=== PATIENT | female | born 1960 | race Caucasian/White ===

== ENCOUNTER 2017-08-20 09:36 | Day surgery (SDC) | payer MEDICAID ==
[~2017-08-20] VITALS: Ht 177.8 cm; Wt 61.4 kg
[~2017-08-20 09:36] MED LIST: ASPI81 PO; ATOR10 PO; CARV3.125 PO; CLOP75 PO; D32000CA PO; LISI2.5T3 PO; TAB-TAB PO
[2017-08-20 09:50] VITALS: BP 141/89; PULSE 67; RESP 20; TEMP 99.5; O2SAT 98
[2017-08-20] MEDS ORDERED: SODIUM CHLOR 0.9% 1000 ML IV SCH (10:00)
[2017-08-20] MEDS ORDERED: PERC10TA27 PO (10:07)
[2017-08-20] MEDS ORDERED: FENT25DI T-DERMAL (10:07)
[2017-08-20] MEDS ORDERED: D-20TAB3 PO (10:07)
[2017-08-20] MEDS ORDERED: MULTTAB67 PO (10:07)
[2017-08-20] MEDS ORDERED: LYRI150C PO (10:07)
[2017-08-20] MEDS ORDERED: PLAV75TA29 PO (10:07)
[2017-08-20] MEDS ORDERED: ATOR10TA15 PO (10:07)
[2017-08-20] MEDS ORDERED: ASPI81CH6 CHEW (10:07)
[2017-08-20 11:54] LABS: HEMATOCRIT 27.7 % (35.0-46.0); MEAN CELL VOLUME 106.6 FL (80.0-100.0); MEAN CORPUSCULAR HEMOGLOBIN 35.2 PG (27.0-34.0); MEAN CORPUSCULAR HGB CONC 33.1 % (32.0-36.0); PLATELET COUNT 198 TH/MM3 (150-450); RED CELL DISTRIBUTION WIDTH 19.5 % (11.6-17.2)
[2017-08-20 11:55] LABS: HEMO FLAGS AUTO DIFF
[2017-08-20 12:03] LABS: APTT (PATIENT) 28.8 SEC (24.3-30.1); INTERNATIONAL NORMALIZED RATIO 1.1 RATIO; PROTHROMBIN TIME - PATIENT 10.8 SEC (9.8-11.6)
[2017-08-20 12:37] LABS: BANDS 4 % (0-6); BASOPHILS 1 % (0-2); EOSINOPHILS 4 % (0-4); POLYS (SEG NEUTROPHILS) 15 % (16-70); WBC DIFF SAMPLE 100
[2017-08-20 12:40] LABS: NEUTROPHIL # MANUAL DIFF 0.4 TH/MM3 (1.8-7.7)
[2017-08-20 12:41] LABS: OVALOCYTES 1+ (NORMAL); PLATELET ESTIMATE SMEAR NORMAL (NORMAL); PLATELET MORPHOLOGY NORMAL (NORMAL); SCAN/DIFF FINAL DIFF MANUAL
[2017-08-20] MEDS ORDERED: LIDOCAINE 1%/EPINEPHrine 1:100,000 SOLN 20 ML VIAL ONE (13:44)
[2017-08-20] MEDS ORDERED: MIDAZOLAM HCL 2 MG/2 ML VIAL ONE (14:07)
--- NOTE | 2017-08-20 14:55 | PD.RAD ---
Post CT Procedure Prog Note Pre Procedure Diagnosis: (1) Anemia (2) AML (acute myeloblastic leukemia) Post Procedure Diagnosis: (1) AML (acute myeloblastic leukemia) (2) Anemia Procedure Date: Aug 20, 2017 Supervising Radiologist: Reg Terry Anesthesia: Local, Analgesia, Conscious Sedation Plan of Activity Patient to Unit: ROPU Patient Condition: Good See PACS Report for procedural detail/treatment Biopsy Imaging Guidance: CT Side: Right Biopsy Procedure: Bone Marrow Specimen: Core Biopsy, Fine Needle Aspirate Fluid Description: Reg Jimenez MD Aug 20, 2017 14:55
[2017-08-20 15:10] VITALS: BP 116/77; PULSE 72; RESP 18; TEMP 98.3; O2SAT 95
[2017-08-20 15:25] VITALS: BP 120/77; PULSE 67; RESP 18; O2SAT 96
[2017-08-20 15:55] VITALS: BP 123/86; PULSE 71; RESP 18; O2SAT 96
--- NOTE | 2017-08-20 15:57 | RADRPT ---
EXAM DATE/TIME: 08/20/2017 14:22 [place] COMPARISON: No previous studies available for comparison. INDICATIONS : Myelodysplastic syndrome, acute myeloid leukemia, neutropenia. SEDATION TIME: 40 minutes BIOPSY SITE: Right ilium. MEDICATION(S): 1.) 3 mg midazolam (Versed) IV 2.) 150 mcg fentanyl (Sublimaze) IV DEVICE(S): 1.) 11 gauge Bone marrow biopsy needle MEDICAL HISTORY : Chronic obstructive pulmonary disease. Renal calculi. Stroke Myelodysplastic syndrome. SURGICAL HISTORY : Hysterectomy. ENCOUNTER: Initial ACUITY: 1 day PAIN SCORE: 0/10 LOCATION: Right pelvis A total of one core specimen(s) were obtained and sent to the laboratory for pathologic evaluation. PROCEDURE: 1. CT guided bone marrow biopsy. Prior to the procedure informed consent was obtained. Any appropriate prior imaging studies were rev iewed. Using automated exposure control and adjustment of the mA and/or kV according to patient size , radiation dose was kept as low as reasonably achievable to obtain optimal diagnostic quality images . DICOM format image data is available electronically for review and comparison. The site was prepped in a sterile fashion. Full sterile technique was used, including cap, mask, atif rile gloves and gown and a large sterile sheet. Hand hygiene and 2% chlorhexidine and/or betadine/al cohol prep was utilized per protocol for cutaneous antisepsis. The skin and subcutaneous tissues wer e infiltrated with local anesthetic solution. With CT guidance the previously identified target was localized. Biopsy was performed using the presc ribed needle as above. Following biopsy marrow aspiration was performed with repeat puncture. Adequa te hemostasis was obtained with compression at the puncture site. Follow-up CT scan reveals no hemorrhage. Conscious sedation was performed with the prescribed dosages and duration as above in the presence of an independent trained radiology nurse to assist in the monitoring of the patient. EKG and oximetry remained stable throughout the procedure. The patient tolerated the procedure well and there were no complications. The patient was sent to Radiology Outpatient Unit in stable condition. CONCLUSION: 1. Uncomplicated CT guided bone marrow aspirate. 2. Uncomplicated CT guided bone marrow biopsy. Reg Terry MD on August 20, 2017 at 15:55 Board Certified Radiologist. This report was verified electronically.
[2017-08-20 16:13] LABS: BONE MARROW PROCESSING COMPLETE
[2017-08-20 16:14] LABS: IRON STAIN DONE; JENNER GIEMSA STAIN DONE
[2017-08-20] MEDS ORDERED: oxyCODONE/ACETAMINOPHEN 10 MG/325 MG TAB PO ONE (16:15)
[2017-08-20 16:25] VITALS: BP 130/88; PULSE 68; RESP 20; O2SAT 97
[2017-08-20 16:55] VITALS: BP 135/80; PULSE 70; RESP 20; O2SAT 97
== END 2017-08-20 17:26 | disposition home or self-care (01) ==
LOC: HRAD 09:36 → HRIP 09:37 → HRAD 17:26
PROVIDERS: ATTEND Internal Medicine
DX: C92.00 Acute myeloblastic leukemia, not having achieved remission (principal); D53.9 Nutritional anemia, unspecified; D70.9 Neutropenia, unspecified; J44.9 Chronic obstructive pulmonary disease, unspecified
CPT/HCPCS: 38221; 77012; 85007; 85027; 85097; 85610; 85730; 88305; 88311; 88313; 99152; 99153; C1830; G0364; J2250; J3010; J7030

== ENCOUNTER 2017-12-25 15:00 | Observation (INO) | payer MEDICAID ==
[~2017-12-25] VITALS: Ht 177.8 cm; Wt 62.5 kg
[~2017-12-25 15:00] MED LIST changes: -ASPI81 PO; +ASPI81CH6 CHEW; -ATOR10 PO; +ATOR10TA15 PO; -CARV3.125 PO; -CLOP75 PO; +D-20TAB3 PO; -D32000CA PO; +FENT25DI T-DERMAL; -LISI2.5T3 PO; +LYRI150C PO; +MULTTAB67 PO; +PERC10TA27 PO; +PLAV75TA29 PO; -TAB-TAB PO
[2017-12-25 15:04] VITALS: BP 109/60; PULSE 84; RESP 16; TEMP 99.5; O2SAT 97
[2017-12-25] MEDS ORDERED: SODIUM CHLORID 0.9% 500 ML INJ 500 ML IV ONE (15:30)
[2017-12-25] MEDS ORDERED: SODIUM CHLORIDE 0.9% FLUSH 10 ML FLUSH IVF PRN (15:30)
--- NOTE | 2017-12-25 15:44 | PD ---
HPI Chief Complaint: Abnormal Results Time Seen by Provider: 15:13 Travel History International Travel<30 days: No Contact w/Intl Traveler<30days: No Traveled to known affect area: No History of Present Illness HPI Patient is a 57 year old female with history of mild dysplastic syndrome with profound neutropenia, presents the emergency room with complaints of anemia. Patient reports that she does follow-up with Dr. Cristiano Sher with hematology. Patient reports that she had her blood drawn last week and her hemoglobin was low, she subsequently had a blood transfusion on Friday. Patient had her blood work redrawn yesterday, her hemoglobin resulted as 5.7. Patient was told by rehab aid to go directly to the emergency room for a blood transfusion. Patient reports that she does feel a little weaker than normal, denies any fevers or chills, denies any chest pain or shortness of breath. Patient with no other complaints at this time. PFSH Past Medical History Hx Anticoagulant Therapy: Yes (plavix and asa 81mg) Anemia: Yes Arthritis: Yes Asthma: No Anxiety: No Depression: No Cancer: Yes (LEUKEMIA/LYMPHOMA) Cardiovascular Problems: Yes ([place] x 1 with one stent, hx of htn not on meds) High Cholesterol: No Chemotherapy: Yes (last march 2014) Chest Pain: No Congestive Heart Failure: No COPD: No Diabetes: No Diminished Hearing: No Gastrointestinal Disorders: Yes (PUD) Glaucoma: No Genitourinary: No Headaches: Yes (MIGRAINES) Hepatitis: No Hiatal Hernia: No Hypertension: Yes (WITH HEADACHES) Immune Disorder: No Musculoskeletal: Yes (CHRONIC BACK PAIN) Neurologic: Yes (migraines , cva) Psychiatric: No Reproductive: No Respiratory: No Immunizations Current: No Migraines: Yes Sleep Apnea: No Thyroid Disease: No ?: Not Menopausal: Yes : 3 Para: 3 Ovarian Cysts: Yes Past Surgical History AICD: No Gynecologic Surgery: Yes (LAPAROSCOPY, OVARIAN CYSTECTOMY) Hysterectomy: Yes Joint Replacement: No Pacemaker: No Other Surgery: Yes (SINUS SURGERY 1985) Social History Alcohol Use: No Tobacco Use: Yes (OCCASIONAL) Substance Use: No Allergies-Medications (Allergen,Severity, Reaction): Coded Allergies: aspirin (Unverified Allergy, Severe, N/V, BEHAIVIOR CHANGES, 12/25/17) pt states does not have a allergy to this med Tash Correa 12/25/17 butalbital (Unverified Allergy, Severe, N/V, BEHAIVIOR CHANGES, 12/25/17) butorphanol (Unverified Allergy, Severe, IRRITABLE, 12/25/17) caffeine (Unverified Allergy, Severe, N/V, BEHAIVIOR CHANGES, 12/25/17) acetaminophen (Unverified Allergy, Unknown, 12/25/17) codeine (Unverified Allergy, Unknown, 12/25/17) Reported Meds & Prescriptions Reported Meds & Active Scripts Active Reported Flonase Nasal [place] (Fluticasone Nasal [place]) 50 Mcg/Act [place] 50 Mcg EACH NARE BID Percocet (Oxycodone-Acetaminophen) 10-325 mg Tab 1 Tab PO TID PRN Fentanyl Patch 72 HR (Fentanyl) 25 Mcg/Hr Patch 25 Mcg T-DERMAL Q72H Lyrica (Pregabalin) 150 Mg Cap 150 Mg PO TID Multiple Vitamin 1 Tab 1 Tab PO DAILY Plavix (Clopidogrel Bisulfate) 75 Mg Tab 75 Mg PO DAILY D-2000 Maximum Strength (Cholecalciferol) 2,000 Unit Tab 2,000 Units PO DAILY Atorvastatin (Atorvastatin Calcium) 10 Mg Tab 10 Mg PO HS Aspirin Low Dose (Aspirin) 81 Mg Chew 81 Mg CHEW DAILY Review of Systems General / Constitutional: No: Fever Eyes: No: Visual changes HENT: No: Headaches Cardiovascular: No: Chest Pain or Discomfort Respiratory: No: Shortness of Breath Gastrointestinal: No: Abdominal Pain Genitourinary: No: Dysuria Musculoskeletal: No: Pain Skin: No Rash Neurologic: Positive: Weakness Psychiatric: No: Depression Endocrine: No: Polydipsia Hematologic/Lymphatic: No: Easy Bruising Physical Exam Narrative GENERAL: Mild distress SKIN: Focused skin assessment warm/dry/pale HEAD: Atraumatic. Normocephalic. EYES: Pupils equal and round. No scleral icterus. No injection or drainage. ENT: No nasal bleeding or discharge. Mucous membranes pink and moist. NECK: Trachea midline. No JVD. CARDIOVASCULAR: Regular rate and rhythm. No murmur appreciated. RESPIRATORY: No accessory muscle use. Clear to auscultation. Breath sounds equal bilaterally. GASTROINTESTINAL: Abdomen soft, non-tender, nondistended. Hepatic and splenic margins not palpable. MUSCULOSKELETAL: No obvious deformities. No clubbing. No cyanosis. No edema. NEUROLOGICAL: Awake and alert. No obvious cranial nerve deficits. Motor grossly within normal limits. Normal speech. PSYCHIATRIC: Appropriate mood and affect; insight and judgment normal. Data Data Last Documented VS Vital Signs Date Time Temp Pulse Resp B/P (MAP) Pulse Ox O2 Delivery O2 Flow Rate FiO2 12/25/17 15:57 74 18 91/66 (74) 93 Room Air 12/25/17 15:04 99.5 Orders Orders Type And Screen (12/25/17 15:21) Basic Metabolic Panel (Bmp) (12/25/17 15:21) Complete Blood Count With Diff (12/25/17 15:21) Prothrombin Time / Inr (Pt) (12/25/17 15:21) Act Partial Throm Time (Ptt) (12/25/17 15:21) Ecg Monitoring (12/25/17 15:21) Iv Access Insert/Monitor (12/25/17 15:21) Oximetry (12/25/17 15:21) Sodium Chloride 0.9% Flush (Ns Flush) (12/25/17 15:30) Sodium Chlorid 0.9% 500 Ml Inj (Ns 500 M (12/25/17 15:30) Red Blood Cells Irradiated (12/25/17 16:12) Blood Product Administration (12/25/17 16:12) Sodium Chlor 0.9% 250 Ml Inj (Ns 250 Ml (12/25/17 16:15) Place In Observation (12/25/17 ) Vital Signs (Adult) ORALIA.Q4H (12/25/17 16:23) Activity Oob With Assistance (12/25/17 16:23) Diet Regular Basic (12/25/17 Dinner) Labs Laboratory Tests Test 12/25/17 15:30 White Blood Count 1.8 TH/MM3 Red Blood Count 1.48 MIL/MM3 Hemoglobin 5.3 GM/DL Hematocrit 15.8 % Mean Corpuscular Volume 106.3 FL Mean Corpuscular Hemoglobin 36.0 PG Mean Corpuscular Hemoglobin Concent 33.8 % Red Cell Distribution Width 30.9 % Platelet Count 132 TH/MM3 Mean Platelet Volume 8.4 FL CBC Comment AUTO DIFF Prothrombin Time 12.1 SEC Prothromb Time International Ratio 1.2 RATIO Activated Partial Thromboplast Time 32.2 SEC Blood Urea Nitrogen 15 MG/DL Creatinine 0.77 MG/DL Random Glucose 87 MG/DL Calcium Level 8.2 MG/DL Sodium Level 140 MEQ/L Potassium Level 3.9 MEQ/L Chloride Level 111 MEQ/L Carbon Dioxide Level 22.3 MEQ/L Anion Gap 7 MEQ/L Estimat Glomerular Filtration Rate 77 ML/MIN MDM Medical Decision Making Medical Screen Exam Complete: Yes Emergency Medical Condition: Yes Medical Record Reviewed: Yes Interpretation(s) Vital Signs Date Time Temp Pulse Resp B/P (MAP) Pulse Ox O2 Delivery O2 Flow Rate FiO2 12/25/17 15:04 99.5 84 16 109/60 (76) 97 Differential Diagnosis anemia, MDS Narrative Course 57-year-old female with history of MDS and neutropenia who presents the emergency room for evaluation of anemia; yesterday's HGB resulted at 5.7 - patient here for blood transfusion During the course of the patients emergency department visit, the patients history, examination, and differential diagnosis were reviewed with the patient. The patient was placed on a groundwater monitoring technician with oximetry and frequent blood pressure monitoring. The patient had an IV access obtained and blood work sent for analysis. The patient was initially provided IVF The patients laboratory studies were reviewed and remarkable for CBC & BMP Diagram 12/25/17 15:30 Calcium Level 8.2 L . Patient's hemoglobin is 5.3, 2 units of blood was ordered. Case reviewed with Dr. Begum who accepted patient to service. Diagnosis Primary Impression: Symptomatic anemia Additional Impression: Neutropenia Admitting Information Admitting Physician Requests: Admit Tyra Zamorano DO Dec 25, 2017 15:44
[2017-12-25 15:57] VITALS: BP 91/66; PULSE 74; RESP 18; O2SAT 93
[2017-12-25 15:58] LABS: BICARBONATE 22.3 MEQ/L (21.0-32.0); CALCIUM 8.2 MG/DL (8.5-10.1)
[2017-12-25 15:59] LABS: MEAN CELL VOLUME 106.3 FL (80.0-100.0); MEAN CORPUSCULAR HGB CONC 33.8 % (32.0-36.0); MEAN PLATELET VOLUME 8.4 FL (7.0-11.0); PLATELET COUNT 132 TH/MM3 (150-450); RED BLOOD COUNT 1.48 MIL/MM3 (4.00-5.30); RED CELL DISTRIBUTION WIDTH 30.9 % (11.6-17.2); WHITE BLOOD COUNT 1.8 TH/MM3 (4.0-11.0)
[2017-12-25 16:01] LABS: INTERNATIONAL NORMALIZED RATIO 1.2 RATIO; PROTHROMBIN TIME - PATIENT 12.1 SEC (9.8-11.6)
[2017-12-25 16:02] LABS: CREATININE 0.77 MG/DL (0.50-1.00); HEMATOCRIT 15.8 % (35.0-46.0); HEMOGLOBIN 5.3 GM/DL (11.6-15.3)
[2017-12-25] MEDS ORDERED: FLUT1SPR5 EACH NARE (16:08)
[2017-12-25] MEDS ORDERED: SODIUM CHLOR 0.9% 250 ML INJ 250 ML IV ONE (16:15)
[2017-12-25 16:25] LABS: LYMPHOCYTES 78 % (9-44); MONOCYTES 9 % (0-8); POLYS (SEG NEUTROPHILS) 13 % (16-70)
[2017-12-25 16:26] LABS: TARGET CELLS 1+ (NORMAL)
[2017-12-25 16:29] LABS: NEUTROPHIL # MANUAL DIFF 0.2 TH/MM3 (1.8-7.7)
--- NOTE | 2017-12-25 16:53 | HHI.HP ---
HPI Service [facility] Primary Care Physician Sony Dumont MD Admission Diagnosis Symptomatic anemia Diagnoses: (1) Anemia Chief Complaint: Told to come here by oncology Travel History International Travel<30 Days: No Contact w/Intl Traveler <30 Da: No Traveled to Known Affected Are: No History of Present Illness 57-year-old rather unfortunate female with myelodysplasia, antiphospholipid syndrome, COPD, anxiety, history of CVA, peripheral neuropathy, history of myocardial infarction who presented to hospital at the request of her oncologist for transfusion. Patient does have mild spastic syndrome and undergoes transfusions on a regular basis. She states that has been getting worse since July with pancytopenia has been requiring Neupogen, frequent transfusions. Her last transfusion was Friday where she got transfused 1 unit of packed red blood cells. She had follow-up blood work done and was called by the oncologist office who told her to go to the ER to get a transfusion. Patient had blood work done today which did indicate a hemoglobin of 5.3. Patient is also neutropenic. Patient indicates that she has had short of breath and increased fatigue. She was seen by emergency room physician and requested observation for blood transfusion as requested by the oncologist. Review of Systems Constitutional: COMPLAINS OF: Fatigue Ears, nose, mouth, throat: COMPLAINS OF: Throat pain, Sinus Pain Respiratory: COMPLAINS OF: Shortness of breath Except as stated in HPI: all other systems reviewed are Neg Past Family Social History Past Medical History Myelodysplastic syndrome History of myocardial infarction History CVA Peripheral neuropathy Continue tobacco use Chronic back pain History of acute myelogenous leukemia Anxiety Chronic infarct pulmonary disease Past Surgical History Bone marrow biopsy Right knee surgery Ovarian cystotomy Sinus surgery Hysterectomy Reported Medications Reported Meds & Active Scripts Active Reported Flonase Nasal [place] (Fluticasone Nasal [place]) 50 Mcg/Act [place] 50 Mcg EACH NARE BID Percocet (Oxycodone-Acetaminophen) 10-325 mg Tab 1 Tab PO TID PRN Fentanyl Patch 72 HR (Fentanyl) 25 Mcg/Hr Patch 25 Mcg T-DERMAL Q72H Lyrica (Pregabalin) 150 Mg Cap 150 Mg PO TID Multiple Vitamin 1 Tab 1 Tab PO DAILY Plavix (Clopidogrel Bisulfate) 75 Mg Tab 75 Mg PO DAILY D-2000 Maximum Strength (Cholecalciferol) 2,000 Unit Tab 2,000 Units PO DAILY Atorvastatin (Atorvastatin Calcium) 10 Mg Tab 10 Mg PO HS Aspirin Low Dose (Aspirin) 81 Mg Chew 81 Mg CHEW DAILY Allergies: Coded Allergies: aspirin (Unverified Allergy, Severe, N/V, BEHAIVIOR CHANGES, 12/25/17) pt states does not have a allergy to this med Tash Correa 12/25/17 butalbital (Unverified Allergy, Severe, N/V, BEHAIVIOR CHANGES, 12/25/17) butorphanol (Unverified Allergy, Severe, IRRITABLE, 12/25/17) caffeine (Unverified Allergy, Severe, N/V, BEHAIVIOR CHANGES, 12/25/17) acetaminophen (Unverified Allergy, Unknown, 12/25/17) codeine (Unverified Allergy, Unknown, 12/25/17) Family History Reviewed and significant for father in his 60s from heart disease, mother at age 72 from pancreatic cancer, mother at age 57 from lung cancer Social History Patient continues to smoke at least one cigarette weekly. She was smoking half pack of cigarettes a day since she was 14 years old. Patient denies any alcohol or illicit drug Physical Exam Vital Signs Vital Signs Date Time Temp Pulse Resp B/P (MAP) Pulse Ox O2 Delivery O2 Flow Rate FiO2 12/25/17 15:57 74 18 91/66 (74) 93 Room Air 12/25/17 15:57 18 93 Room Air 12/25/17 15:04 99.5 84 16 109/60 (76) 97 Physical Exam GENERAL: Well-developed, cachectic, in no acute distress. alert and orientated HEENT: Head is normocephalic without any lesions or masses noted. Facial features are symmetric. Eyes: Pupils equal round reactive to light. Extraocular muscles are intact. Conjunctivae were clear. Did not examine oropharyngeal patient is wearing mass due to neutropenia NECK: Supple without any masses. Trachea midline no deviation. No JVD, no bruits are appreciated CARDIAC: Regular rhythm, regular rate. S1/S2 are heard. No murmurs gallops or rubs. LUNGS: Clear to auscultation bilaterally. No wheeze, rhonchi or rales. No use of accessory muscles on inspiration or expiration. ABDOMEN: Soft, nontender. Nondistended. Bowel sounds heard in all 4 quadrants. No organomegaly or masses. Negative rebound, negative guarding EXTREMITIES: No edema, pulses are equal bilaterally. No cyanosis or clubbing NEUROLOGY: Mood and affect appear appropriate. Cranial nerves II through XII grossly intact. Patient has obvious muscle wasting of the right hand Laboratory Laboratory Tests Test 12/25/17 15:30 White Blood Count 1.8 Red Blood Count 1.48 Hemoglobin 5.3 Hematocrit 15.8 Mean Corpuscular Volume 106.3 Mean Corpuscular Hemoglobin 36.0 Mean Corpuscular Hemoglobin Concent 33.8 Red Cell Distribution Width 30.9 Platelet Count 132 Mean Platelet Volume 8.4 CBC Comment AUTO DIFF Differential Total Cells Counted 100 Neutrophils % (Manual) 13 Lymphocytes % 78 Monocytes % 9 Neutrophils # (Manual) 0.2 Differential Comment FINAL DIFF MANUAL Platelet Estimate LOW Platelet Morphology Comment NORMAL Target Cells 1+ Prothrombin Time 12.1 Prothromb Time International Ratio 1.2 Activated Partial Thromboplast Time 32.2 Blood Urea Nitrogen 15 Creatinine 0.77 Random Glucose 87 Calcium Level 8.2 Sodium Level 140 Potassium Level 3.9 Chloride Level 111 Carbon Dioxide Level 22.3 Anion Gap 7 Estimat Glomerular Filtration Rate 77 Result Diagram: 12/25/17 1530 12/25/17 1530 Caprini VTE Risk Assessment Caprini VTE Risk Assessment: Mod/High Risk (score >= 2) Caprini Risk Assessment Model Point Value = 1 Point Value = 2 Point Value = 3 Point Value = 5 Age 41-60 Minor surgery BMI > 25 kg/m2 Swollen legs Varicose veins or History of unexplained or recurrent spontaneous Oral contraceptives or hormone replacement Sepsis (< 1 month) Serious lung disease, including pneumonia (< 1 month) Abnormal pulmonary function Acute myocardial infarction Congestive heart failure (< 1 month) History of inflammatory bowel disease Medical patient at bed rest Age 61-74 Arthroscopic surgery Major open surgery (> 45 min) Laparoscopic surgery (> 45 min) Malignancy Confined to bed (> 72 hours) Immobilizing plaster cast Central venous access Age >= 75 History of VTE Family history of VTE Factor V Leiden Prothrombin [id number] Lupus anticoagulant Anticardiolipin antibodies Elevated serum homocysteine Heparin-induced thrombocytopenia Other congenital or acquired thrombophilia Stroke (< 1 month) Elective arthroplasty Hip, pelvis, or leg fracture Acute spinal cord injury (< 1 month) Prophylaxis Regimen Total Risk Factor Score Risk Level Prophylaxis Regimen 0-1 Low Early ambulation 2 Moderate Order ONE of the following: *Sequential Compression Device (SCD) *Heparin 5000 units SQ BID 3-4 Higher Order ONE of the following medications: *Heparin 5000 units SQ TID *Enoxaparin/Lovenox 40 mg SQ daily (WT < 150 kg, CrCl > 30 mL/min) *Enoxaparin/Lovenox 30 mg SQ daily (WT < 150 kg, CrCl > 10-29 mL/min) *Enoxaparin/Lovenox 30 mg SQ BID (WT < 150 kg, CrCl > 30 mL/min) AND/OR *Sequential Compression Device (SCD) 5 or more Highest Order ONE of the following medications: *Heparin 5000 units SQ TID (Preferred with Epidurals) *Enoxaparin/Lovenox 40 mg SQ daily (WT < 150 kg, CrCl > 30 mL/min) *Enoxaparin/Lovenox 30 mg SQ daily (WT < 150 kg, CrCl > 10-29 mL/min) *Enoxaparin/Lovenox 30 mg SQ BID (WT < 150 kg, CrCl > 30 mL/min) AND *Sequential Compression Device (SCD) Assessment and Plan Assessment and Plan Anemia secondary to myelodysplastic syndrome requiring transfusion ER physician transfusing 2 units of packed red blood cells Follow-up hemoglobin/hematocrit, try to keep hemoglobin above 8.0 Neutropenia secondary to myelodysplastic syndrome Neutropenic precautions History of CVA, history of myocardial infarction, Continue home medications Chronic pain with peripheral neuropathy Continue home medications DVT prevention Sequential compression devices Problem Qualifiers (1) Anemia: Qualified Codes: D64.89 - Other specified anemias Raad Paz Dec 25, 2017 16:53
[2017-12-25] MEDS ORDERED: MAGNESIUM HYDROXIDE SUSP 30 ML CUP PO PRN (17:00)
[2017-12-25] MEDS ORDERED: NALOXONE HCL 0.4 MG/ML AMP IV PUSH PRN (17:00)
[2017-12-25] MEDS ORDERED: SODIUM CHLORIDE 0.9% FLUSH 10 ML FLUSH IV FLUSH PRN (17:00)
[2017-12-25] MEDS ORDERED: BISACODYL 10 MG SUPP RECTAL PRN (17:00)
[2017-12-25] MEDS ORDERED: oxyCODONE/ACETAMINOPHEN 10 MG/325 MG TAB PO PRN (17:00)
[2017-12-25] MEDS ORDERED: SENNOSIDES 8.6 MG TAB PO PRN (17:00)
[2017-12-25] MEDS ORDERED: ONDANSETRON HCL 4 MG/2 ML VIAL IVP PRN (17:00)
[2017-12-25] MEDS ORDERED: LACTULOSE SYRUP 20 GM/30 ML CUP PO PRN (17:00)
[2017-12-25] MEDS: PREGABALIN 75 MG CAP PO SCH (17:44)
[2017-12-25 17:47] VITALS: BP 89/59; PULSE 72; RESP 16; O2SAT 93
[2017-12-25] MEDS: SODIUM CHLORIDE 0.9% FLUSH 10 ML FLUSH IV FLUSH SCH (21:00)
[2017-12-25] MEDS ORDERED: FLUTICASONE PROPIONATE 50 MCG/ACT 16 GM NASAL SPRAY EACH NARE SCH (21:00)
[2017-12-25] MEDS ORDERED: ATORVASTATIN 10 MG TAB PO SCH (21:00)
[2017-12-25] MEDS: DOCUSATE SODIUM 50 MG/SENNA 8.6 MG TAB PO SCH (21:43)
[2017-12-25] MEDS ORDERED: oxyCODONE/ACETAMINOPHEN 10 MG/325 MG TAB PO ONE (22:00)
[2017-12-25 22:34] VITALS: BP 97/71; PULSE 77; RESP 12; TEMP 98.9; O2SAT 96
[2017-12-25 22:36] VITALS: BP 97/51
[2017-12-25 23:00] VITALS: BP 97/78; PULSE 77; RESP 12; TEMP 98.8; O2SAT 97
[2017-12-26] VITALS (7 sets, daily range): BP systolic 92–141; BP diastolic 68–93; PULSE 65–78; RESP 12–20; TEMP 98.9–99.8; O2SAT 95–99
[2017-12-26 06:40] LABS: BASOPHIL % 0.7 % (0.0-2.0); EOSINOPHIL # 0.1 TH/MM3 (0-0.4); EOSINOPHIL % 9.2 % (0.0-4.0); HEMATOCRIT 22.7 % (35.0-46.0); HEMOGLOBIN 7.6 GM/DL (11.6-15.3); LYMPH % 61.9 % (9.0-44.0); LYMPHOCYTE # 1.1 TH/MM3 (1.0-4.8); MEAN CELL VOLUME 95.1 FL (80.0-100.0); MEAN CORPUSCULAR HEMOGLOBIN 31.8 PG (27.0-34.0); MEAN CORPUSCULAR HGB CONC 33.5 % (32.0-36.0); MONO % 13.2 % (0.0-8.0); MONOCYTE # 0.2 TH/MM3 (0-0.9); PLATELET COUNT 121 TH/MM3 (150-450); RED BLOOD COUNT 2.38 MIL/MM3 (4.00-5.30); RED CELL DISTRIBUTION WIDTH 28.5 % (11.6-17.2); WHITE BLOOD COUNT 1.6 TH/MM3 (4.0-11.0)
[2017-12-26 06:59] LABS: AUTOMATED NEUTROPHIL # 0.2 TH/MM3 (1.8-7.7)
[2017-12-26 07:38] LABS: LYMPHOCYTES 66 % (9-44); MONOCYTES 9 % (0-8); NEUTROPHIL # MANUAL DIFF 0.3 TH/MM3 (1.8-7.7); POLYS (SEG NEUTROPHILS) 18 % (16-70)
[2017-12-26 07:39] LABS: TARGET CELLS 1+ (NORMAL)
[2017-12-26] MEDS: SODIUM CHLORIDE 0.9% FLUSH 10 ML FLUSH IV FLUSH SCH (08:06)
[2017-12-26] MEDS: PREGABALIN 75 MG CAP PO SCH (08:06)
[2017-12-26] MEDS: DOCUSATE SODIUM 50 MG/SENNA 8.6 MG TAB PO SCH (08:06)
--- NOTE | 2017-12-26 08:29 | HHI.PR ---
Subjective Remarks Patient seen and examined today for follow-up on anemia secondary to myelodysplasia. Patient laying in bed comfortable, denies any new complaints. Patient eager to go home. Vital signs are stable, patient remains afebrile Objective Vitals Vital Signs Date Time Temp Pulse Resp B/P (MAP) Pulse Ox O2 Delivery O2 Flow Rate FiO2 12/26/17 08:00 99.8 71 16 141/86 (104) 95 12/26/17 04:14 99.5 65 12 133/93 95 12/26/17 04:00 98.9 12/26/17 01:34 99.2 66 14 102/72 97 12/26/17 00:50 99.0 74 16 92/68 99 12/26/17 00:00 99.3 78 20 118/73 (88) 97 12/25/17 23:00 98.8 77 12 97/78 97 12/25/17 22:36 97/51 (66) 12/25/17 22:34 98.9 77 12 97/71 96 12/25/17 19:49 12/25/17 18:43 16 12/25/17 17:47 72 16 89/59 (69) 93 Room Air 12/25/17 15:57 74 18 91/66 (74) 93 Room Air 12/25/17 15:57 18 93 Room Air 12/25/17 15:04 99.5 84 16 109/60 (76) 97 I/O 12/25/17 12/25/17 12/25/17 12/26/17 12/26/17 12/26/17 07:00 15:00 23:00 07:00 15:00 23:00 Intake Total 1000 ml 1090 ml Balance 1000 ml 1090 ml Intake Oral 500 ml 60 ml IV Total 500 ml Packed Cells 800 ml Blood Product IV Normal Saline Flush 230 ml # Voids 1 2 # Bowel Movements 0 0 Result Diagram: 12/26/17 0525 12/25/17 1530 Objective Remarks GENERAL: Well-developed, cachectic, in no acute distress. alert and orientated HEENT: Head is normocephalic without any lesions or masses noted. Facial features are symmetric. Eyes: Extraocular muscles are intact. Conjunctivae were clear. NECK: Supple without any masses. Trachea midline no deviation. No JVD, CARDIAC: Regular rhythm, regular rate. S1/S2 are heard. No murmurs gallops or rubs. LUNGS: Clear to auscultation bilaterally. No wheeze, rhonchi or rales. No use of accessory muscles on inspiration or expiration. ABDOMEN: Soft, nontender. Nondistended. Bowel sounds heard in all 4 quadrants. No organomegaly or masses. Negative rebound, negative guarding EXTREMITIES: No edema, pulses are equal bilaterally. No cyanosis or clubbing NEUROLOGY: Mood and affect appear appropriate. Cranial nerves II through XII grossly intact. Patient has obvious muscle wasting of the right hand, moving all extremities, speech is clear A/P Assessment and Plan Anemia secondary to myelodysplastic syndrome requiring transfusion ER physician transfusing 2 units of packed red blood cells Follow-up hemoglobin/hematocrit, try to keep hemoglobin above 8.0 Discussed with hematology/oncology, who indicated the patient can be discharged Neutropenia secondary to myelodysplastic syndrome Neutropenic precautions History of CVA, history of myocardial infarction, Continue home medications Chronic pain with peripheral neuropathy Continue home medications DVT prevention Sequential compression devices Discharge Planning Discharge home in stable condition Activity: Ad mildred. Diet: Healthy heart diet Medication per medication reconciliation Follow-up with primary medical doctor in 1 week Raad Paz Dec 26, 2017 08:29
[2017-12-26] MEDS ORDERED: CLOPIDOGREL 75 MG TAB PO SCH (09:00)
[2017-12-26] MEDS ORDERED: ASPIRIN 81 MG CHEW TAB CHEW SCH (09:00)
--- NOTE | 2017-12-26 10:25 | HHI.DCPOC ---
Discharge Care Plan Diagnosis: (1) Symptomatic anemia (2) Neutropenia (3) MDS (myelodysplastic syndrome) Goals to Promote Your Health * To prevent worsening of your condition and complications * To maintain your health at the optimal level Directions to Meet Your Goals Take your medications as prescribed Follow your dietary instruction Follow activity as directed Keep your appointments as scheduled Take your immunizations and boosters as scheduled If your symptoms worsen call your PCP, if no PCP go to Urgent Care Center or Emergency Room Smoking is Dangerous to Your Health. Avoid second hand smoke Call the 24-hour hour crisis hotline for domestic abuse at Raad Paz Dec 26, 2017 10:25
[2017-12-27] MEDS ORDERED: fentaNYL 25 MCG/HR PATCH T-DERMAL SCH (09:00)
== END 2017-12-26 11:20 | disposition home or self-care (01) ==
LOC: PHED 15:00 → PHEDA 16:25 → PH3B 19:52
PROVIDERS: ADMIT Hospitalist; ATTEND Hospitalist
DX: D64.89 Other specified anemias (principal); D46.9 Myelodysplastic syndrome, unspecified; D70.9 Neutropenia, unspecified; G62.9 Polyneuropathy, unspecified; G89.29 Other chronic pain; I10 Essential (primary) hypertension; J44.9 Chronic obstructive pulmonary disease, unspecified; I25.2 Old myocardial infarction; R06.02 Shortness of breath; R53.83 Other fatigue; F41.9 Anxiety disorder, unspecified; M19.90 Unspecified osteoarthritis, unspecified site; F17.210 Nicotine dependence, cigarettes, uncomplicated; Z79.899 Other long term (current) drug therapy; Z79.82 Long term (current) use of aspirin; Z85.72 Personal history of non-Hodgkin lymphomas; Z86.73 Personal history of transient ischemic attack (TIA), and cerebral infarction without residual deficits
CPT/HCPCS: 36430; 80048; 85007; 85027; 85610; 85730; 86850; 86900; 86901; 86920; 86922; 96360; 96361; 99285; G0378; J7040; J7050; P9040

== ENCOUNTER 2018-01-13 07:35 | Day surgery (SDC) | payer MEDICAID ==
[~2018-01-13] VITALS: Ht 177.8 cm; Wt 60.0 kg
[~2018-01-13 07:35] MED LIST changes: +FLUT1SPR5 EACH NARE
[2018-01-13 08:04] VITALS: BP 139/93; PULSE 91; RESP 20; TEMP 97.6; O2SAT 93
[2018-01-13] MEDS ORDERED: POVIDONE IODINE 5% (ANTISEPSIS KIT) 4 APPLICATIONS EACH NARE SCH (08:30)
[2018-01-13] MEDS ORDERED: SODIUM CHLORIDE 0.9% 1000 ML IV SCH (08:30)
[2018-01-13] MEDS ORDERED: VANCOMYCIN 1000 MG/NS 250 ML - implanted port/tunneled catheter IV SCH ×2 (08:30)
[2018-01-13] MEDS ORDERED: ceFAZolin 2 GM PREMIX 50 ML - implanted port/tunneled catheter insertion IV SCH (08:30)
[2018-01-13] MEDS ORDERED: CHLORHEXIDINE GLUCONATE 2 % 1 PACK (2 CLOTHS) TOPICAL SCH (08:30)
[2018-01-13 08:49] LABS: INTERNATIONAL NORMALIZED RATIO 1.1 RATIO; PROTHROMBIN TIME - PATIENT 10.7 SEC (9.8-11.6)
[2018-01-13] MEDS ORDERED: ACETAMINOPHEN 325 MG TAB PO ONE (09:45)
[2018-01-13] MEDS ORDERED: MIDAZOLAM HCL 5 MG/5 ML VIAL ONE (11:19)
[2018-01-13] MEDS ORDERED: fentaNYL CITRATE 250 MCG/5 ML AMP ONE (11:19)
[2018-01-13] MEDS ORDERED: LIDOCAINE 1%/EPINEPHrine 1:100,000 SOLN 30 ML VIAL ONE (12:19)
--- NOTE | 2018-01-13 12:52 | PD.RAD ---
Post Procedure Progress Note Pre Procedure Diagnosis: (1) AML (acute myeloblastic leukemia) Post Procedure Diagnosis: (1) AML (acute myeloblastic leukemia) Procedure Date: January 13, 2018 Supervising Radiologist: Emery Murphy Estimated blood loss: 3cc Anesthesia: Local, Conscious Sedation Plan of Activity Patient to Unit: ROPU Patient Condition: Fair Additional Comments: Port laced via the right IJ. Catheter in good position OK for use. See PACS Report for procedural detail/treatment Emery Murphy MD January 13, 2018 12:52
[2018-01-13] MEDS ORDERED: SODIUM CHLORIDE 0.9% FLUSH 10 ML FLUSH IVF PRN (13:00)
[2018-01-13 13:05] VITALS: BP 115/76; PULSE 88; RESP 18; TEMP 97.5; O2SAT 95
[2018-01-13 13:20] VITALS: BP 118/78; PULSE 83; RESP 20; O2SAT 96
[2018-01-13 13:50] VITALS: BP 104/71; PULSE 78; RESP 20; O2SAT 94
[2018-01-13 14:20] VITALS: BP 106/73; PULSE 82; RESP 20; O2SAT 94
[2018-01-13 14:50] VITALS: BP 116/68; PULSE 80; RESP 20; O2SAT 98
--- NOTE | 2018-01-15 08:25 | RADRPT ---
EXAM DATE/TIME: 01/13/2018 12:47 [place] COMPARISON: No previous studies available for comparison. INDICATIONS : Patient with myelodysplasia, antipholipid syndrome.Needs good access. MEDICAL HISTORY : 1. Myelodysplastic syndrome 2. [place] 3. CVA 4. peripheral neuropathy 5. smoker 6. anxiety 7. chronic back pain SURGICAL HISTORY : bone marrow bx 2. right knee surgery 3. ovarian cystotomy 4. sinus surgery 5. hysterectomy ENCOUNTER: Initial ACUITY: >1 year PAIN SCORE: 8/10 LOCATION: legs FLUORO TIME: 0.4 minutes IMAGE SERIES: 1 SEDATION TIME: 30 minutes ACCESS: Right internal jugular vein SEDATION: 1.) 4 mg midazolam (Versed) IV 2.) 150 mcg fentanyl (Sublimaze) IV Prophylactic antibiotics were administered with appropriate pre-procedure timing. Vancomycin within 2 hours of procedure, Ancef (or alternative) within 1 hour of procedure. DEVICE: 1. 8 [place] single lumen Xcela plus port PROCEDURE : 1. Continuous pulse oximetry and EKG monitoring. 2. Intravenous conscious sedation. 3. Ultrasound guidance for venous access. 4. Fluoroscopic guided implantable central venous port placement. The patient was placed supine. The neck was prepped in sterile fashion. Full sterile technique was u sed, including cap, mask, sterile gloves and gown, and a large sterile sheet. Hand hygiene and 2% ch lorhexidine Betadine was utilized per protocol for cutaneous antisepsis with appropriate dry time for site. Sterile gel and sterile probe cover were utilized for ultrasound guidance. The skin and sub cutaneous tissues were infiltrated with local anesthetic solution. Under direct ultrasound guidance, central venous access was accomplished via the right internal jugul ar vein. The ultrasound images depicting access guidance were stored and saved to PACS for permanent record. A subcutaneous pocket was created using blunt dissection. The port was introduced to the p ocket. The catheter tubing was fed through a subcutaneous tunnel to the venotomy site. The catheter tubing was cut to a suitable length and then was introduced through a valved Peel-Away sheath and po sitioned with catheter tubing tip at the cavo-atrial junction level. The pocket incision was closed with subcuticular Vicryl suture. Steri-Strips were applied. The port was flushed and locked with he dianne solution per protocol. Sterile dressing was applied to the site. The patient tolerated the pr ocedure well. Conscious sedation was performed with the prescribed dosages and duration as above in the presence of an independent trained radiology nurse to assist in the monitoring of the patient. EKG and oximetry remained stable throughout the procedure. The patient tolerated the procedure well and there were no complications. The patient was sent to post anesthesia recovery in stable condition. CONCLUSION: Uncomplicated ultrasound and fluoroscopic guided implanted central venous port catheter placement as described in detail above. An 8 [place] Power port was placed. Emery Murphy MD on January 15, 2018 at 8:23 Board Certified Radiologist. This report was verified electronically.
== END 2018-01-13 15:05 | disposition home or self-care (01) ==
LOC: HROP 07:35 → HRIP 07:40 → HROP 15:05
PROVIDERS: ATTEND Internal Medicine
DX: D46.9 Myelodysplastic syndrome, unspecified (principal); Z86.73 Personal history of transient ischemic attack (TIA), and cerebral infarction without residual deficits; G62.9 Polyneuropathy, unspecified; F17.210 Nicotine dependence, cigarettes, uncomplicated; F41.9 Anxiety disorder, unspecified; G89.29 Other chronic pain
CPT/HCPCS: 36561; 76937; 77001; 85610; 85730; 99152; 99153; C1788; J1642; J2250; J3010; J3370; J7030; J7050

== ENCOUNTER 2018-03-09 13:43 | Inpatient (IN) ==
[2018-03-14] MEDS ORDERED: CEFEPIME IV.SIG ONE (23:41)
[2018-03-14] MEDS ORDERED: Acetaminophen 325 MG Tablet ONE (23:48)
[2018-03-15] MEDS ORDERED: Naloxone Inj 0.4 MG/ML Vial IV.PUSH PRN (00:01)
[2018-03-15] MEDS ORDERED: Acetaminophen 325 MG Tablet PO PRN ×2 (00:01→00:30)
[2018-03-15] MEDS ORDERED: clonazePAM 0.5 MG Tablet PO PRN (00:01)
[2018-03-15] MEDS ORDERED: Vancomycin Consult Pharmacy 1 EACH OTHER SCH (00:01)
[2018-03-15] MEDS ORDERED: Heparin Central Flush 100 UNIT/ML 5 ML Vial IV.FLUSH PRN ×2 (05:06)
[2018-03-15 06:23] LABS: Albumin 1.7 g/dL (3.4-5.0)
[2018-03-15 06:26] LABS: Alanine Aminotransferase 10 U/L (10-53); Aspartate Aminotransferase 7 U/L (15-37); Glomerular Filtration Rate Greater Than 89 mL/min (>89)
[2018-03-15 06:28] LABS: Total Protein 5.6 g/dL (6.4-8.2)
[2018-03-15 06:29] LABS: Alkaline Phosphatase 68 U/L (45-117)
[2018-03-15] MEDS: Pregabalin 75 MG Capsule PO SCH ×3 (08:02→17:28)
[2018-03-15] MEDS: Carbamide Peroxide 6.5% Otic Drops 15 ML Bottle RIGHT EAR SCH ×2 (08:04→21:06)
[2018-03-15] MEDS ORDERED: Bisacodyl 10 MG Supp RECTAL PRN (09:00)
--- NOTE | 2018-03-15 10:09 | P.PNIM ---
Subjective Interval history: Patient seen and evaluated today in follow-up for neutropenia with fever. T- max 101.5 Physical Exam Vital signs: Vital Signs 03/15/18 02:37 03/15/18 08:00 Temperature 101.5 F H 99.2 F Pulse Rate 100 H 84 Respiratory Rate 20 16 Blood Pressure 144/90 H 138/89 Pulse Oximetry 95 99 Intake & Output 03/14/18 03/15/18 03/15/18 18:59 06:59 18:59 Intake Total 360 / 360 Balance 360 / 360 Weight 65 kg 66 kg Intake: Oral 360 / 360 Other: # Voids 4 # Bowel Movements 1 Narrative: GENERAL: Resting and would like to go home patient would like to go home No acute distress SKIN: Warm and dry. HEAD: Atraumatic. Normocephalic. EYES: Pupils equal and round. No scleral icterus. No injection or drainage. ENT: No nasal bleeding or discharge. Mucous membranes pink and moist. NECK: Trachea midline. No JVD. CARDIOVASCULAR: Regular rate and rhythm. RESPIRATORY: No accessory muscle use. Clear to auscultation. Breath sounds equal bilaterally. GASTROINTESTINAL: Abdomen soft, non-tender, nondistended. Hepatic and splenic margins not palpable. MUSCULOSKELETAL: Right chest port .extremities without clubbing, cyanosis, or edema. No obvious deformities. NEUROLOGICAL: Awake and alert. No obvious cranial nerve deficits. Motor grossly within normal limits. Five out of 5 muscle strength in the arms and legs. Normal speech. PSYCHIATRIC: Appropriate mood and affect; insight and judgment normal. Results - Labs CBC & Chem 7: 03/14/18 06:00 03/15/18 06:06 Labs: Laboratory Results - last 24 hr 03/11/18 03/12/18 03/12/18 21:19 12:50 13:37 WBC 1.2 L RBC 2.83 L Hgb 8.3 L 8.7 L Hct 25.1 L 26.8 L MCV 94.6 MCH 30.8 MCHC 32.6 RDW 17.2 Plt Count 144 L MPV 7.0 Neut % (Auto) 15.2 L Lymph % (Auto) 79.7 H [place] % (Auto) 1.8 Eos % (Auto) 1.8 Baso % (Auto) 1.5 Neut # (Auto) 0.2 L* Lymph # (Auto) 1.0 [place] # (Auto) 0.0 Eos # (Auto) 0.0 Baso # (Auto) 0.0 CBC Comment AUTO DIFF Total Counted 100 Neutrophils % (Manual) 7 L Band Neutrophils % 1 Lymphocytes % 90 H Monocytes % Eosinophils % 1 Basophils % 1 Neutrophils # (Manual) 0.1 L* Differential Comment FINAL DIFF MANUAL Platelet Estimate LOW L Plt Morphology Comment ENLARGED H Ovalocytes 1+ H Creatinine Estimated GFR Total Bilirubin Direct Bilirubin Indirect Bilirubin AST ALT Alkaline Phosphatase Total Creatine Kinase Total Protein Albumin Urine Color YELLOW Urine Turbidity CLEAR Urine pH 6.0 Ur Specific [place] 1.020 Urine Protein 100 H Urine Glucose (UA) NEG Urine Ketones TRACE H Urine Occult Blood TRACE Urine Nitrite NEG Urine Bilirubin NEG Urine Urobilinogen 2.0 Ur Leukocyte Esterase NEG Urine WBC 0-2 Ur Squamous Epith Cells 6-8 H Urine Bacteria OCC H Urine Mucus MOD H Micro UA Comment CULT NOT INDICATED Vancomycin Trough 03/13/18 03/13/18 03/14/18 05:40 05:40 00:50 WBC 1.1 L RBC 2.37 L Hgb 7.6 L Hct 22.2 L MCV 93.7 MCH 32.2 MCHC 34.3 RDW 17.9 H Plt Count 103 L MPV 8.2 Neut % (Auto) Lymph % (Auto) [place] % (Auto) Eos % (Auto) Baso % (Auto) Neut # (Auto) Lymph # (Auto) [place] # (Auto) Eos # (Auto) Baso # (Auto) CBC Comment AUTO DIFF Total Counted 50 Neutrophils % (Manual) 16 Band Neutrophils % Lymphocytes % 84 H Monocytes % Eosinophils % Basophils % Neutrophils # (Manual) 0.2 L* Differential Comment FINAL DIFF MANUAL Platelet Estimate LOW L Plt Morphology Comment NORMAL Ovalocytes 1+ H Creatinine 0.39 L Estimated GFR 169 Total Bilirubin Direct Bilirubin Indirect Bilirubin AST ALT Alkaline Phosphatase Total Creatine Kinase Total Protein Albumin Urine Color Urine Turbidity Urine pH Ur Specific [place] Urine Protein Urine Glucose (UA) Urine Ketones Urine Occult Blood Urine Nitrite Urine Bilirubin Urine Urobilinogen Ur Leukocyte Esterase Urine WBC Ur Squamous Epith Cells Urine Bacteria Urine Mucus Micro UA Comment Vancomycin Trough 10.0 03/14/18 03/15/18 03/15/18 06:00 06:06 06:06 WBC 1.0 L RBC 2.34 L Hgb 7.3 L Hct 22.1 L MCV 94.4 MCH 31.1 MCHC 33.0 RDW 17.1 Plt Count 87 L MPV 7.9 Neut % (Auto) Lymph % (Auto) [place] % (Auto) Eos % (Auto) Baso % (Auto) Neut # (Auto) Lymph # (Auto) [place] # (Auto) Eos # (Auto) Baso # (Auto) CBC Comment AUTO DIFF Total Counted 50 Neutrophils % (Manual) 10 L Band Neutrophils % Lymphocytes % 88 H Monocytes % 2 Eosinophils % Basophils % Neutrophils # (Manual) 0.1 L* Differential Comment FINAL DIFF MANUAL Platelet Estimate LOW L Plt Morphology Comment NORMAL Ovalocytes Creatinine 0.39 L Estimated GFR Greater than 89 Total Bilirubin 0.5 Direct Bilirubin 0.2 Indirect Bilirubin 0.3 AST 7 L ALT 10 Alkaline Phosphatase 68 Total Creatine Kinase 25 L Total Protein 5.6 L Albumin 1.7 L Urine Color Urine Turbidity Urine pH Ur Specific [place] Urine Protein Urine Glucose (UA) Urine Ketones Urine Occult Blood Urine Nitrite Urine Bilirubin Urine Urobilinogen Ur Leukocyte Esterase Urine WBC Ur Squamous Epith Cells Urine Bacteria Urine Mucus Micro UA Comment Vancomycin Trough Assessment and Plan - Assessment (1) Neutropenic fever Code(s): D70.9 - Neutropenia, unspecified; R50.81 - Fever presenting with conditions classified elsewhere Status: Acute Plan: Continue micafungin, vancomycin and cefepime Cultures negative, chest x-ray unremarkable (2) History of CVA (cerebrovascular accident) Code(s): Z86.73 - Personal history of transient ischemic attack (TIA), and cerebral infarction without residual deficits Status: Acute Plan: Continue Plavix and statin - Plan Discussed Condition With: patient, daughter Génesis
[2018-03-15 11:01] LABS: Baso % (Auto) 0.4 % (0.0-2.0); Eos % (Auto) 0.7 % (0.0-4.0); Hematocrit 23.4 % (35.0-46.0); Lymph % (Auto) 87.2 % (9.0-44.0); Mean Corpuscular Hemoglobin 28.4 pg (27.0-34.0); Mean Corpuscular Volume 94.5 fL (80.0-100.0); Mean Platelet Volume 9.4 fL (7.0-11.0); Mono % (Auto) 2.4 % (0.0-8.0); Neut % (Auto) 9.3 % (16.0-70.0); Platelet Count 82 th/mm3 (150-450); Red Blood Count 2.48 mil/mm3 (4.00-5.30); Red Cell Distribution Width 17.7 % (11.6-17.2); White Blood Count 1.1 th/mm3 (4.0-11.0)
[2018-03-15 11:40] LABS: Neut # (Auto) 0.1 th/mm3 (1.8-7.7)
[2018-03-15 11:46] LABS: Eosinophils 1 % (0-4); Lymphocytes 86 % (9-44); Monocytes 1 % (0-8); Platelet Morphology Normal (Normal)
[2018-03-15] MEDS: Ibuprofen 400 MG Tablet PO PRN (12:11)
[2018-03-15] MEDS: Vancomycin Inj 1,250 MG in Sodium Chlor 0.9% Inj 250 ML IV.SIG SCH (12:36)
[2018-03-15] MEDS ORDERED: PHARMACY ORDERED LAB OTHER ONE (12:45)
[2018-03-15] MEDS: Micafungin Inj 150 MG in Sodium Chlor 0.9% Inj 100 ML IV.SIG SCH (17:29)
[2018-03-15] MEDS ORDERED: [UNRECOGNIZED DRUG - OTHER] T-DERMAL SCH (20:00)
[2018-03-16] MEDS: Ibuprofen 400 MG Tablet PO PRN (00:15)
[2018-03-16] MEDS: Vancomycin Inj 1,250 MG in Sodium Chlor 0.9% Inj 250 ML IV.SIG SCH ×2 (01:12→18:30)
[2018-03-16] MEDS: Pregabalin 75 MG Capsule PO SCH ×3 (08:53→17:45)
[2018-03-16] MEDS: Carbamide Peroxide 6.5% Otic Drops 15 ML Bottle RIGHT EAR SCH ×4 (09:04→20:15)
[2018-03-16] MEDS: Heparin Central Flush 100 UNIT/ML 5 ML Vial IV.FLUSH SCH (10:31)
--- NOTE | 2018-03-16 12:55 | P.PN ---
Physical Exam Vital signs: Vital Signs 03/15/18 16:00 03/15/18 20:00 03/16/18 00:00 Temperature 99.2 F 98.2 F 101.5 F H Pulse Rate 88 90 96 H Respiratory Rate 16 18 16 Blood Pressure 124/77 135/86 145/98 H Pulse Oximetry 98 99 99 03/16/18 01:10 03/16/18 04:00 03/16/18 08:00 Temperature 98.5 F 97.5 F L Pulse Rate 82 Respiratory Rate 15 17 Blood Pressure 133/91 H Pulse Oximetry 97 Intake & Output 03/15/18 03/16/18 03/16/18 18:59 06:59 18:59 Intake Total 1007.5 / 1007.5 450 / 450 Output Total 700 / 700 Balance 1007.5 / 1007.5 -250 / -250 Weight 64.4 kg Intake: IV 447.5 / 447.5 100 / 100 Maxipime Inj 2,000 MG In NS Inj 200 / 200 100 / 100 100 ML @ 200 mls/hr IV.SIG Q8H FALGUNI Rx#:[id number] Vancomycin Inj 1,250 MG In NS 247.5 / 247.5 Inj 250 ML @ 250 mls/hr IV.SIG Q12H FALGUNI Rx#:[id number] Oral 200 / 200 350 / 350 Oral Supplement 360 / 360 Output: Urine 700 / 700 Other: # Voids 3 Narrative: Patient doing better. Despite fevers she is very asymptomatic and feels much better. Labs are still pending. Patient is difficult to access her port and difficult to draw peripheral blood work from - Constitutional no acute distress - Routine HEENT Exam Head: Present: normocephalic, atraumatic Eye: Present: EOMI, PERRL ENT: Present: mucous membranes moist - Routine Neck Exam Present: supple, full ROM - Routine Respiratory Exam Present: CTA bilaterally - Routine Cardiovascular Exam Present: RRR, S1 - Routine Skin Exam Present: intact - Routine Neurological Exam Present: alert, oriented X3 - Routine Psychiatric Exam Present: normal affect, normal thought process Results - Labs CBC & Chem 7: 03/15/18 06:06 03/15/18 06:06 Laboratory Results - last 24 hr 03/15/18 12:30 Vancomycin Trough 14.2 H Assessment and Plan - Assessment (1) Neutropenic fever Code(s): D70.9 - Neutropenia, unspecified; R50.81 - Fever presenting with conditions classified elsewhere Status: Acute Plan: Continue micafungin, vancomycin and cefepime Repeat cultures negative, repeat chest x-ray unremarkable Patient still neutropenic still with fever T-max 101.5 (2) History of CVA (cerebrovascular accident) Code(s): Z86.73 - Personal history of transient ischemic attack (TIA), and cerebral infarction without residual deficits Status: Acute Plan: Continue Plavix and statin - Plan Discharge Planning: Discharge home pending resolution of symptoms
--- NOTE | 2018-03-16 15:59 | P.PNID ---
Subjective Remarks: Patient is a 57-year-old female with history of myelodysplastic syndrome, has problem with significant pancytopenia, undergoing chemotherapy, and her last treatment was about a week ago. She presented with an acute onset of febrile illness. She really did not have any respiratory complaint or any urinary complaint. She had some nausea and vomiting when she had the chemo but that has resolved. She has not had any abdominal pain. Since admission she has been febrile. Her WBC is low and she has a very low absolute neutrophil count. She is currently on cefepime. Blood culture so far negative. Patient has an [id number], and usually gets accessed once a week. However when she had her chemo it was accessed daily. She has not had any problem with her port. Her chest x-ray is normal. Urinalysis is unremarkable. Notes reviewed Still with fevers, not as frequent, not as high WBC remains low All BC are negative No new complaint States nurses not able to draw blood from her port repeat CXR clear repeat UA same, with some bacteria, C/S negative c/o her chronic bl feet neuropathic pain Antibiotics: Vancomycin Cefepime Micafungin Lines: Port Past Medical History: Arthritis Myelodysplastic syndrome Coronary artery disease Migraines Chronic back pain Multiple CVA Past Surgical History Ovarian cystectomy Sinus surgery Hysterectomy Port placement Allergies/Adverse Reactions: Allergies butalbital Allergy (Severe, Verified 03/09/18 13:58) N/V, BEHAIVIOR CHANGES butorphanol Allergy (Severe, Verified 03/09/18 13:58) IRRITABLE codeine Adverse Reaction (Unknown, Verified 03/09/18 13:58) Patient states no reaction to this medication. Objective Vital Signs 03/15/18 16:00 03/15/18 20:00 03/16/18 00:00 Temperature 99.2 F 98.2 F 101.5 F H Pulse Rate 88 90 96 H Respiratory Rate 16 18 16 Blood Pressure 124/77 135/86 145/98 H Pulse Oximetry 98 99 99 03/16/18 01:10 03/16/18 04:00 03/16/18 08:00 Temperature 98.5 F 97.5 F L Pulse Rate 82 Respiratory Rate 15 17 Blood Pressure 133/91 H Pulse Oximetry 97 03/16/18 12:00 Temperature 98.1 F Pulse Rate 90 Respiratory Rate 17 Blood Pressure 129/97 H Pulse Oximetry 96 Intake & Output 03/15/18 03/16/18 03/16/18 18:59 06:59 18:59 Intake Total 1007.5 / 1007.5 450 / 450 Output Total 700 / 700 Balance 1007.5 / 1007.5 -250 / -250 Weight 64.4 kg Intake: IV 447.5 / 447.5 100 / 100 Maxipime Inj 2,000 MG In NS Inj 200 / 200 100 / 100 100 ML @ 200 mls/hr IV.SIG Q8H FALGUNI Rx#:[id number] Vancomycin Inj 1,250 MG In NS 247.5 / 247.5 Inj 250 ML @ 250 mls/hr IV.SIG Q12H FALGUNI Rx#:[id number] Oral 200 / 200 350 / 350 Oral Supplement 360 / 360 Output: Urine 700 / 700 Other: # Voids 3 Lab - Hematology Results 03/11/18 03/12/18 03/13/18 21:19 12:50 05:40 CBC w Diff WBC 1.2 L 1.1 L RBC 2.83 L 2.37 L Hgb 8.3 L 8.7 L 7.6 L Hct 25.1 L 26.8 L 22.2 L MCV 94.6 93.7 MCH 30.8 32.2 MCHC 32.6 34.3 RDW 17.2 17.9 H Plt Count 144 L 103 L MPV 7.0 8.2 Neut % (Auto) 15.2 L Lymph % (Auto) 79.7 H [place] % (Auto) 1.8 Eos % (Auto) 1.8 Baso % (Auto) 1.5 Neut # (Auto) 0.2 L* Lymph # (Auto) 1.0 [place] # (Auto) 0.0 Eos # (Auto) 0.0 Baso # (Auto) 0.0 CBC Comment AUTO DIFF AUTO DIFF WBC Differential Total Counted 100 50 Neutrophils % (Manual) 7 L 16 Seg Neuts % (Manual) Band Neutrophils % 1 Lymphocytes % 90 H 84 H Lymphocytes % (Manual) Monocytes % Monocytes % (Manual) Eosinophils % 1 Eosinophils % (Manual) Basophils % 1 Neutrophils # (Manual) 0.1 L* 0.2 L* Abs Neuts (Manual) Differential Comment FINAL DIFF MANUAL FINAL DIFF MANUAL Platelet Estimate LOW L LOW L Platelet Morphology Plt Morphology Comment ENLARGED H NORMAL Ovalocytes 1+ H 1+ H 03/14/18 03/15/18 06:00 06:06 CBC w Diff Slide review pending WBC 1.0 L 1.1 L RBC 2.34 L 2.48 L Hgb 7.3 L 7.0 L Hct 22.1 L 23.4 L MCV 94.4 94.5 MCH 31.1 28.4 MCHC 33.0 30.0 L RDW 17.1 17.7 H Plt Count 87 L 82 L MPV 7.9 9.4 Neut % (Auto) 9.3 L Lymph % (Auto) 87.2 H [place] % (Auto) 2.4 Eos % (Auto) 0.7 Baso % (Auto) 0.4 Neut # (Auto) 0.1 L* Lymph # (Auto) 1.0 [place] # (Auto) 0.0 Eos # (Auto) 0.0 Baso # (Auto) 0.0 CBC Comment AUTO DIFF WBC Differential Manual diff final Total Counted 50 Neutrophils % (Manual) 10 L Seg Neuts % (Manual) 12 L Band Neutrophils % Lymphocytes % 88 H Lymphocytes % (Manual) 86 H Monocytes % 2 Monocytes % (Manual) 1 Eosinophils % Eosinophils % (Manual) 1 Basophils % Neutrophils # (Manual) 0.1 L* Abs Neuts (Manual) 0.1 L* Differential Comment FINAL DIFF MANUAL Platelet Estimate LOW L Low L Platelet Morphology Normal Plt Morphology Comment NORMAL Ovalocytes Lab - Chemistry Results 03/13/18 03/15/18 03/15/18 05:40 06:06 06:06 Creatinine 0.39 L 0.39 L Estimated GFR 169 Greater than 89 Total Bilirubin 0.5 Direct Bilirubin 0.2 Indirect Bilirubin 0.3 AST 7 L ALT 10 Alkaline Phosphatase 68 Total Creatine Kinase 25 L Total Protein 5.6 L Albumin 1.7 L Imagin CXR - negative Physical Exam: Physical Exam GENERAL: Awake and alert, NAD SKIN: Warm and dry. No generalized rash. Skin looks pale HEAD: Atraumatic. Normocephalic. No temporal wasting, or tenderness. EYES: [place] conjunctiva. No petechia or hemorrhage. Pupils equal, round and reactive to light. Extraocular movements full and intact. No scleral icterus. No injection or drainage. Edentulous, dentures in place EARS, NOSE AND THROAT: Nose without bleeding or purulent nasal discharge. No sinus tenderness. Mucous membranes pink and moist. No oral lesions noted. No exudate. No oral thrush. NECK: Trachea midline. CARDIOVASCULAR: Regular rate and rhythm. No murmurs, rubs or gallops heard RESPIRATORY: Clear to auscultation. Breath sounds equal bilaterally. No rales , wheezing or rhonchi ABDOMEN: Soft, non-tender, nondistended. Bowel sounds present and normoactive. No guarding. No rebound. No organomegaly. EXTREMITIES: No clubbing, cyanosis, or edema. No calf tenderness. Well perfused and warm. NEUROLOGICAL: Awake and alert. Cranial nerves grossly intact. PSYCHIATRIC: Normal affect, calm and cooperative. LINE: No evidence of infection Assessment and Plan - Plan IMPRESSION Possible sepsis on admission Neutropenic fevers, cont to have fever Known MDS s/p chemo RECOMMENDATION Monitor temps Follow C/S Follow CBC Continue Cefepime for GNR coverage Cont Vancomycin (for empiric GPC, MRSA coverage) Continue micafungin for antifungal coverage) Monitor progress D/W Dr Frey Explained plan to patient Starting tomorrow, Dr Tosin Fair covering PO patients
[2018-03-16] MEDS ORDERED: Filgrastim Inj 300 MCG/ML Vial SQ ONE (18:00)
[2018-03-16 18:36] LABS: Hematocrit 23.7 % (35.0-46.0); Hemoglobin 7.7 gm/dL (11.6-15.3); Mean Corpuscular HGB Conc 32.4 % (32.0-36.0); Mean Corpuscular Hemoglobin 30.5 pg (27.0-34.0); Mean Corpuscular Volume 94.4 fL (80.0-100.0); Platelet Count 100 th/mm3 (150-450); Red Blood Count 2.51 mil/mm3 (4.00-5.30); White Blood Count 1.1 th/mm3 (4.0-11.0)
[2018-03-16] MEDS: Micafungin Inj 150 MG in Sodium Chlor 0.9% Inj 100 ML IV.SIG SCH (20:11)
[2018-03-17] MEDS: Vancomycin Inj 1,250 MG in Sodium Chlor 0.9% Inj 250 ML IV.SIG SCH ×2 (02:18→13:05)
[2018-03-17] MEDS: Heparin Central Flush 100 UNIT/ML 5 ML Vial IV.FLUSH SCH ×2 (06:37→10:58)
[2018-03-17] MEDS: Pregabalin 75 MG Capsule PO SCH ×3 (08:01→17:06)
[2018-03-17] MEDS: Carbamide Peroxide 6.5% Otic Drops 15 ML Bottle RIGHT EAR SCH ×2 (10:58→20:24)
--- NOTE | 2018-03-17 12:44 | P.PNIM ---
Subjective Interval history: Neutropenia and fever. Patient with history of MDS Febrile at 101.7 today. No new complaints. Cultures are negative (2 sets of blood culture, 2 chest x-rays 2 urine samples) Counts have stabilized Physical Exam Vital signs: Vital Signs 03/16/18 14:22 03/16/18 16:00 03/16/18 20:00 Temperature 99.4 F 101.7 F H Pulse Rate 96 H 105 H Respiratory Rate 18 16 18 Blood Pressure 149/92 H 130/84 Pulse Oximetry 97 95 03/16/18 22:13 03/17/18 00:00 03/17/18 04:00 Temperature 99.2 F 100.0 F H Pulse Rate 88 Respiratory Rate 18 20 Blood Pressure 108/76 Pulse Oximetry 96 03/17/18 08:00 03/17/18 10:57 Temperature 100.1 F H Pulse Rate 90 Respiratory Rate 16 18 Blood Pressure 138/89 Pulse Oximetry 97 Intake & Output 03/16/18 03/17/18 03/17/18 18:59 06:59 18:59 Intake Total 1020 / 1020 1042.5 / 1042.5 Balance 1020 / 1020 1042.5 / 1042.5 Weight 64.2 kg Intake: IV 100 / 100 562.5 / 562.5 Maxipime Inj 2,000 MG In NS Inj 100 / 100 200 / 200 100 ML @ 200 mls/hr IV.SIG Q8H FALGUNI Rx#:[id number] Mycamine Inj 150 MG In NS Inj 100 / 100 100 ML @ 100 mls/hr IV.SIG Q24H FALGUNI Rx#:[id number] Vancomycin Inj 1,250 MG In NS 262.5 / 262.5 Inj 250 ML @ 250 mls/hr IV.SIG Q12H FALGUNI Rx#:[id number] Oral 920 / 920 480 / 480 Other: # Voids 6 4 # Bowel Movements 2 2 Narrative: GENERAL: Patient calm resting and without complaints SKIN: Warm and dry. No rashes or ecchymotic injuries EYES: Pupils equal and round. No scleral icterus. No injection or drainage. ENT: External ear exam normal. No acute nasal bleeding or discharge. Mucous membranes pink and moist. CARDIOVASCULAR: Regular rate and rhythm. No murmurs gallops or rubs appreciated RESPIRATORY: Good air flow and effort without accessory muscle use. Clear to auscultation. Breath sounds equal bilaterally. GASTROINTESTINAL: Abdomen soft, non-tender, nondistended. Hepatic and splenic margins not palpable. MUSCULOSKELETAL: right chest port, Extremities without clubbing, cyanosis, or edema. No obvious deformities. NEUROLOGICAL: Awake and alert. No obvious cranial nerve deficits. Motor grossly within normal limits. Five out of 5 muscle strength in the arms and legs. Normal speech. Results - Labs CBC & Chem 7: 03/16/18 18:27 03/15/18 06:06 Laboratory Results - last 24 hr 03/16/18 03/17/18 18:27 05:15 WBC 1.1 L RBC 2.51 L Hgb 7.7 L Hct 23.7 L MCV 94.4 MCH 30.5 MCHC 32.4 RDW 17.0 Plt Count 100 L MPV 9.0 Total Creatine Kinase 22 L Assessment and Plan - Assessment (1) Neutropenic fever Code(s): D70.9 - Neutropenia, unspecified; R50.81 - Fever presenting with conditions classified elsewhere Status: Acute Plan: Continue micafungin, vancomycin and cefepime Repeat cultures negative, repeat chest x-ray unremarkable Patient still neutropenic still with fever T-max 101.7 (2) History of CVA (cerebrovascular accident) Code(s): Z86.73 - Personal history of transient ischemic attack (TIA), and cerebral infarction without residual deficits Status: Acute Plan: Continue Plavix and statin aspirin held due to thrombocytopenia (3) MDS (myelodysplastic syndrome) Code(s): D46.9 - Myelodysplastic syndrome, unspecified Status: Acute Plan: Refractory MDS. follows with Dr. Sher on dacogen therapy after Vidaza failure. With thrombocytopenia, anemia and leukopenia 3 units prbs transfused - Plan Discussed Condition With: Infectious disease and hematology for continued follow-up Discharge Planning: Discharge home pending resolution of symptoms
[2018-03-17] MEDS: Micafungin Inj 150 MG in Sodium Chlor 0.9% Inj 100 ML IV.SIG SCH (17:07)
--- NOTE | 2018-03-17 18:47 | P.PNONC ---
Subjective Interval history: When can I go home? Patient reports feeling stronger and better and would like to be able to go home. She would like to follow-up with Dr. Sher next Friday at [facility] hematology oncology clinic. Objective Vital Signs/Intake & Output: Vital Signs 03/16/18 20:00 03/16/18 22:13 03/17/18 00:00 Temperature 101.7 F H 99.2 F Pulse Rate 105 H 88 Respiratory Rate 18 18 20 Blood Pressure 130/84 108/76 Pulse Oximetry 95 96 03/17/18 04:00 03/17/18 08:00 03/17/18 10:57 Temperature 100.0 F H 100.1 F H Pulse Rate 90 Respiratory Rate 16 18 Blood Pressure 138/89 Pulse Oximetry 97 03/17/18 12:00 03/17/18 13:49 03/17/18 16:00 Temperature 98.8 F 98.3 F Pulse Rate 84 96 H Respiratory Rate 16 18 17 Blood Pressure 130/91 H 117/74 Pulse Oximetry 96 98 Intake & Output 03/16/18 03/17/18 03/17/18 18:59 06:59 18:59 Intake Total 1020 / 1020 1042.5 / 1042.5 820 / 820 Balance 1020 / 1020 1042.5 / 1042.5 820 / 820 Weight 64.2 kg Intake: IV 100 / 100 562.5 / 562.5 100 / 100 Maxipime Inj 2,000 MG In NS Inj 100 / 100 200 / 200 100 / 100 100 ML @ 200 mls/hr IV.SIG Q8H FALGUNI Rx#:[id number] Mycamine Inj 150 MG In NS Inj 100 / 100 100 ML @ 100 mls/hr IV.SIG Q24H FALGUNI Rx#:[id number] Vancomycin Inj 1,250 MG In NS 262.5 / 262.5 Inj 250 ML @ 250 mls/hr IV.SIG Q12H FALGUNI Rx#:[id number] Oral 920 / 920 480 / 480 720 / 720 Other: # Voids 6 4 6 # Bowel Movements 2 2 2 Result Diagrams: 03/16/18 18:27 03/15/18 06:06 Laboratory Results: Laboratory Results - last 24 hr 03/16/18 03/17/18 18:27 05:15 WBC 1.1 L RBC 2.51 L Hgb 7.7 L Hct 23.7 L MCV 94.4 MCH 30.5 MCHC 32.4 RDW 17.0 Plt Count 100 L MPV 9.0 Total Creatine Kinase 22 L Medications: Active Medications Generic Name Dose Route Start Last Admin Trade Name Freq PRN Reason Stop Dose Admin Acetaminophen 650 mg 03/15/18 00:30 03/16/18 20:12 Tylenol PO 650 mg Q4H PRN Administration SEE LABEL COMMENTS Atorvastatin Calcium 10 mg 03/15/18 21:00 03/16/18 20:12 Lipitor PO 10 mg HS FALGUNI Administration Carbamide Peroxide 5 drops 03/15/18 09:00 03/17/18 10:58 Debrox 6.5% Otic Drops RIGHT EAR Not Given Q12HR FALGUNI Clonazepam 0.5 mg 03/15/18 00:01 03/15/18 12:11 Klonopin PO 0.5 mg Q8H PRN Administration ANXIETY Clopidogrel Bisulfate 75 mg 03/15/18 09:00 03/17/18 08:04 Plavix PO 75 mg DAILY FALGUNI Administration Fentanyl 1 patch 03/15/18 20:00 03/15/18 21:07 Duragesic 25 Mcg Patch.72hr T-DERMAL 1 patch Q3D FALGUNI Administration Filgrastim 480 mcg 03/15/18 14:00 03/17/18 13:05 Neupogen Inj SQ 480 mcg DAILY@1400 FALGUNI Administration Heparin Sodium (Porcine) 200 unit 03/15/18 14:00 03/17/18 10:58 Heparin Central Flush IV.FLUSH Not Given DAILY FALGUNI Cefepime HCl 2,000 mg/ Sodium 100 mls @ 200 mls/hr 03/15/18 08:00 03/17/18 16 :26 Chloride IV.SIG 200 mls/hr Q8H FALGUNI Administration Micafungin Sodium 150 mg/ 100 mls @ 100 mls/hr 03/15/18 18:00 03/17/18 17:07 Sodium Chloride IV.SIG 100 mls/hr Q24H FALGUNI Administration Vancomycin HCl 1,250 mg/ 262.5 mls @ 250 mls/hr 03/15/18 13:00 03/17/18 13:05 Sodium Chloride IV.SIG 250 mls/hr Q12H FALGUNI Administration Multivitamins 1 tab 03/15/18 09:00 03/17/18 08:03 Theragran PO 1 tab DAILY FALGUNI Administration Oxycodone HCl 10 mg 03/15/18 00:24 03/17/18 13:19 Roxicodone PO 10 mg Q6H PRN Administration PAIN SCALE 1 TO 10 Patch Removal 1 each 03/15/18 20:00 03/15/18 21:09 Remove Old Patch T-DERMAL 1 each Q3D FALGUNI Administration Pregabalin 150 mg 03/15/18 09:00 03/17/18 17:06 Lyrica PO 150 mg TID FALGUNI Administration Sodium Chloride 2 ml 03/15/18 09:00 03/17/18 10:58 Ns Flush IV.FLUSH Not Given BID FALGUNI Sodium Chloride 2 ml 03/15/18 00:01 03/15/18 21:13 Ns Flush IV.FLUSH 2 ml PRN PRN Administration FLUSH AFTER USING IV ACCESS Sodium Chloride 5 ml 03/15/18 05:06 03/16/18 00:17 Ns Flush IV.FLUSH 5 ml PRN PRN Administration Flush Infusaport Vitamin D 2,000 unit 03/15/18 09:00 03/17/18 08:03 Vitamin D3 PO 2,000 unit DAILY FALGUNI Administration Objective Remarks: GENERAL: Slender pale appearing, well-developed patient. SKIN: Warm and dry. HEAD: Normocephalic. EYES: No scleral icterus. No injection or drainage. NECK: Supple, trachea midline. No JVD or lymphadenopathy. LYMPHATIC: No adenopathy. CARDIOVASCULAR: Regular rate and rhythm without murmurs. RESPIRATORY: Breath sounds equal bilaterally. No accessory muscle use. GASTROINTESTINAL: Abdomen soft, non-tender, nondistended. EXTREMITIES: No cyanosis, or edema. MUSCULOSKELETAL: Lower extremity with contractures. NEUROLOGICAL: Awake, alert, and oriented x3. PSYCHIATRIC: Appropriate mood and affect; insight and judgment normal. Assessment/Plan (1) MDS (myelodysplastic syndrome) Code(s): D46.9 - Myelodysplastic syndrome, unspecified Status: Chronic - Plan 57-year-old woman well-known patient to Dr. Sher, with myelodysplastic syndrome that has progressed on Vidaza. She is currently on Dacogen. She was admitted with neutropenic fever. She was placed on antibiotic therapy. Her cultures have been negative so far. She had no localizing symptoms. She continues to have intermittent fevers. The fevers are suspected to be due to her chronic neutropenia. She has poor response to Neupogen, which is par to her typical clinical course. She is hemodynamically stable. We discussed the plan to coordinate oral antibiotic therapy support, continued Neupogen, follow- up with Dr. Sher as an outpatient. Blood transfusions can be coordinated for her symptoms. The case was discussed with infectious disease and Dr. Sher who concur with the plan. Okay for discharge from hematology oncology standpoint with antibiotic therapy prophylaxis and the above follow-up. Patient anticipates that her son-in-law can pick her up tomorrow.
--- NOTE | 2018-03-17 19:08 | P.PNID ---
Subjective Remarks: Patient is a 57-year-old female with history of myelodysplastic syndrome, has problem with significant pancytopenia, undergoing chemotherapy, and her last treatment was about a week ago. She presented with an acute onset of febrile illness. She really did not have any respiratory complaint or any urinary complaint. She had some nausea and vomiting when she had the chemo but that has resolved. She has not had any abdominal pain. Since admission she has been febrile. Her WBC is low and she has a very low absolute neutrophil count. She is currently on cefepime. Blood culture so far negative. Patient has an [id number], and usually gets accessed once a week. However when she had her chemo it was accessed daily. She has not had any problem with her port. Her chest x-ray is normal. Urinalysis is unremarkable. Occasional low grade fevers No shortness of breath or cough No mouth sores or sore throat No nausea, vomiting or diarrhea Antibiotics: Vancomycin Cefepime Micafungin Lines: Port Past Medical History: Arthritis Myelodysplastic syndrome Coronary artery disease Migraines Chronic back pain Multiple CVA Past Surgical History Ovarian cystectomy Sinus surgery Hysterectomy Port placement Allergies/Adverse Reactions: Allergies butalbital Allergy (Severe, Verified 03/09/18 13:58) N/V, BEHAIVIOR CHANGES butorphanol Allergy (Severe, Verified 03/09/18 13:58) IRRITABLE codeine Adverse Reaction (Unknown, Verified 03/09/18 13:58) Patient states no reaction to this medication. Objective Vital Signs 03/16/18 20:00 03/16/18 22:13 03/17/18 00:00 Temperature 101.7 F H 99.2 F Pulse Rate 105 H 88 Respiratory Rate 18 18 20 Blood Pressure 130/84 108/76 Pulse Oximetry 95 96 03/17/18 04:00 03/17/18 08:00 03/17/18 10:57 Temperature 100.0 F H 100.1 F H Pulse Rate 90 Respiratory Rate 16 18 Blood Pressure 138/89 Pulse Oximetry 97 03/17/18 12:00 03/17/18 13:49 03/17/18 16:00 Temperature 98.8 F 98.3 F Pulse Rate 84 96 H Respiratory Rate 16 18 17 Blood Pressure 130/91 H 117/74 Pulse Oximetry 96 98 Intake & Output 03/17/18 03/17/18 03/18/18 06:59 18:59 06:59 Intake Total 1042.5 / 1042.5 820 / 820 Balance 1042.5 / 1042.5 820 / 820 Weight 64.2 kg Intake: IV 562.5 / 562.5 100 / 100 Maxipime Inj 2,000 MG In NS Inj 200 / 200 100 / 100 100 ML @ 200 mls/hr IV.SIG Q8H FALGUNI Rx#:[id number] Mycamine Inj 150 MG In NS Inj 100 / 100 100 ML @ 100 mls/hr IV.SIG Q24H FALGUNI Rx#:[id number] Vancomycin Inj 1,250 MG In NS 262.5 / 262.5 Inj 250 ML @ 250 mls/hr IV.SIG Q12H FALGUNI Rx#:[id number] Oral 480 / 480 720 / 720 Other: # Voids 4 6 # Bowel Movements 2 2 Lab - Hematology Results 03/16/18 18:27 WBC 1.1 L RBC 2.51 L Hgb 7.7 L Hct 23.7 L MCV 94.4 MCH 30.5 MCHC 32.4 RDW 17.0 Plt Count 100 L MPV 9.0 Lab - Chemistry Results 03/17/18 05:15 Total Creatine Kinase 22 L Physical Exam: Physical Exam GENERAL: Awake and alert, NAD SKIN: Warm and dry. No generalized rash. Skin looks pale HEAD: Atraumatic. Normocephalic. No temporal wasting, or tenderness. EYES: [place] conjunctiva. No petechia or hemorrhage. Pupils equal, round and reactive to light. Extraocular movements full and intact. No scleral icterus. No injection or drainage. Edentulous, dentures in place EARS, NOSE AND THROAT: Nose without bleeding or purulent nasal discharge. No sinus tenderness. Mucous membranes pink and moist. No oral lesions noted. No exudate. No oral thrush. NECK: Trachea midline. CARDIOVASCULAR: Regular rate and rhythm. No murmurs, rubs or gallops heard RESPIRATORY: Clear to auscultation. Breath sounds equal bilaterally. No rales , wheezing or rhonchi ABDOMEN: Soft, non-tender, nondistended. Bowel sounds present and normoactive. No guarding. No rebound. No organomegaly. EXTREMITIES: No clubbing, cyanosis, or edema. No calf tenderness. Well perfused and warm. NEUROLOGICAL: Awake and alert. Cranial nerves grossly intact. PSYCHIATRIC: Normal affect, calm and cooperative. LINE: No evidence of infection Assessment and Plan (1) Neutropenic fever Status: Acute Code(s): D70.9 - Neutropenia, unspecified; R50.81 - Fever presenting with conditions classified elsewhere - Plan IMPRESSION Neutropenic fevers, cont to have fever Known MDS s/p chemo RECOMMENDATION Blood and urine cultures negative Follow CBC Continue Cefepime for GNR coverage Cont Vancomycin (for empiric GPC, MRSA coverage) Continue micafungin for antifungal coverage) Fever grade is lower and patient is with chronic neutropenia- Discussed with Dr Dukes- this is not going to improve soon. If continues to be stable and no high grade fevers and cultures remain negative Patient can be discharged on Levofloxacin 500 mg daily x 7 days Fluconazole 200 mg po daily x 7 days
[2018-03-18] MEDS: Vancomycin Inj 1,250 MG in Sodium Chlor 0.9% Inj 250 ML IV.SIG SCH (01:23)
--- NOTE | 2018-03-18 11:44 | P.PN ---
Subjective Interval history: patient is resting comfortably with no distress or new complaints. no fever this morning. Physical Exam Vital signs: Vital Signs 03/17/18 12:00 03/17/18 13:49 03/17/18 16:00 Temperature 98.8 F 98.3 F Pulse Rate 84 96 H Respiratory Rate 16 18 17 Blood Pressure 130/91 H 117/74 Pulse Oximetry 96 98 03/17/18 20:00 03/17/18 21:22 03/18/18 00:00 Temperature 100.4 F H 97.7 F Pulse Rate 90 76 Respiratory Rate 20 20 20 Blood Pressure 144/89 H 106/70 Pulse Oximetry 96 97 03/18/18 04:00 03/18/18 05:15 03/18/18 08:35 Temperature 98.4 F 98.8 F Pulse Rate 90 Respiratory Rate 20 18 Blood Pressure 129/87 Pulse Oximetry 97 Intake & Output 03/17/18 03/18/18 03/18/18 18:59 06:59 18:59 Intake Total 1182.5 / 1182.5 480 / 480 Balance 1182.5 / 1182.5 480 / 480 Weight 64 kg Intake: IV 462.5 / 462.5 Maxipime Inj 2,000 MG In NS Inj 200 / 200 100 ML @ 200 mls/hr IV.SIG Q8H FALGUNI Rx#:[id number] Vancomycin Inj 1,250 MG In NS 262.5 / 262.5 Inj 250 ML @ 250 mls/hr IV.SIG Q12H FALGUNI Rx#:[id number] Oral 720 / 720 480 / 480 Other: # Voids 6 4 # Bowel Movements 2 1 - Constitutional no acute distress - Routine Neck Exam Present: supple, full ROM - Routine Respiratory Exam Present: CTA bilaterally - Routine Cardiovascular Exam Present: RRR - Routine Neurological Exam Present: alert, oriented X3 Results - Labs CBC & Chem 7: 03/16/18 18:27 03/15/18 06:06 Assessment and Plan - Assessment (1) Neutropenic fever Code(s): D70.9 - Neutropenia, unspecified; R50.81 - Fever presenting with conditions classified elsewhere Status: Acute Plan: received micafungin, vancomycin and cefepime Repeat cultures negative, repeat chest x-ray unremarkable ID and Oncology f/u appreciated; cleared for discharge by both with po antibiotics. (2) History of CVA (cerebrovascular accident) Code(s): Z86.73 - Personal history of transient ischemic attack (TIA), and cerebral infarction without residual deficits Status: Acute Plan: Continue Plavix and statin aspirin held due to thrombocytopenia (3) MDS (myelodysplastic syndrome) Code(s): D46.9 - Myelodysplastic syndrome, unspecified Status: Chronic Plan: Refractory MDS. follows with Dr. Sher on dacogen therapy after Vidaza failure. With thrombocytopenia, anemia and leukopenia 3 units prbs transfused - Plan Discharge Planning: dc home today with f/u by PCP and Oncology.
--- NOTE | 2018-03-18 11:46 | P.DS ---
Date of admission: 03/09/18 16:54 Primary care physician: Sony Dumont Brief History from admission: patient was admitted with neutropenic fever. she was started on IV antibiotics. she was evaluated by oncology and ID. overall her condition improved and cleared by consultants for discharge with oral antibiotics and follow-up with her oncologist. DS: Diagnosis - Discharge Diagnosis (1) Neutropenic fever Status: Acute (2) History of CVA (cerebrovascular accident) Status: Acute (3) MDS (myelodysplastic syndrome) Status: Chronic DS: Summary Hospital Course: patient was admitted with neutropenic fever. she was started on broad-spectrum IV antibiotics- blood cultures remained negative. fever improved. she was cleared by ID and Oncology for discharge with oral antibiotics. - Time Spent with Patient Total time spent providing and/or coordinating discharge services: Exam Vital signs: Vital Signs 03/17/18 12:00 03/17/18 13:49 03/17/18 16:00 Temperature 98.8 F 98.3 F Pulse Rate 84 96 H Respiratory Rate 16 18 17 Blood Pressure 130/91 H 117/74 Pulse Oximetry 96 98 03/17/18 20:00 03/17/18 21:22 03/18/18 00:00 Temperature 100.4 F H 97.7 F Pulse Rate 90 76 Respiratory Rate 20 20 20 Blood Pressure 144/89 H 106/70 Pulse Oximetry 96 97 03/18/18 04:00 03/18/18 05:15 03/18/18 08:35 Temperature 98.4 F 98.8 F Pulse Rate 90 Respiratory Rate 20 18 Blood Pressure 129/87 Pulse Oximetry 97 Intake & Output 03/17/18 03/18/18 03/18/18 18:59 06:59 18:59 Intake Total 1182.5 / 1182.5 480 / 480 Balance 1182.5 / 1182.5 480 / 480 Weight 64 kg Intake: IV 462.5 / 462.5 Maxipime Inj 2,000 MG In NS Inj 200 / 200 100 ML @ 200 mls/hr IV.SIG Q8H FALGUNI Rx#:[id number] Vancomycin Inj 1,250 MG In NS 262.5 / 262.5 Inj 250 ML @ 250 mls/hr IV.SIG Q12H FALGUNI Rx#:[id number] Oral 720 / 720 480 / 480 Other: # Voids 6 4 # Bowel Movements 2 1 - Constitutional no acute distress - Routine HEENT Exam Head: Present: normocephalic Eye: Present: PERRL - Routine Neck Exam Present: supple, full ROM - Routine Respiratory Exam Present: CTA bilaterally - Routine Cardiovascular Exam Present: RRR - Routine Abdominal Exam Present: soft - Routine Neurological Exam Present: alert, oriented X3 Results Procedures completed during hospitalization: none Discharge Plan - Discharge Disposition Patient Disposition: Discharge Home - Discharge Condition Condition: Fair - Discharge Order Discharge Orders: Discharge Order (Routine); Ordered 03/18/18 Ordered By: Polly Parikh - Physicians Team Attending Provider: Polly Parikh Other Providers: Cesia Garcia MD ; Sima Hall ; Nargis Dukes MD ; Tosin Fair MD - Rxs /Orders / Referrals /Forms Prescriptions: New atorvastatin [Lipitor] 10 mg Tablet 10 mg PO HS RF: 0 fluconazole [Diflucan] 50 mg Tablet 200 mg PO DAILY 7 Days Qty: 28 RF: 0 levofloxacin [Levaquin] 250 mg Tablet 500 mg PO DAILY 7 Days Qty: 14 RF: 0 Continue atorvastatin 10 mg Tablet 10 mg PO HS cholecalciferol (vitamin D3) 2,000 unit Tablet 2,000 unit PO DAILY clopidogrel [Plavix] 75 mg Tablet 75 mg PO DAILY fentanyl 25 mcg/hr Patch 72 Hour 1 patch TRANSDERMAL Q72H fluticasone [Flonase Allergy Relief] 50 mcg/actuation [place],Suspension 1 spray INTRANASAL DAILY multivitamin [Multiple Vitamins] Tablet 1 tab PO DAILY oxycodone-acetaminophen [Percocet] 10-325 mg Tablet 1 tab PO TID PRN (Reason: Pain) pregabalin [Lyrica] 150 mg Capsule 150 mg PO TID Discontinued aspirin 81 mg Tablet,Chewable 81 mg PO DAILY Referrals: Sony Dumont [Other] - See Instructions
== END 2018-03-18 13:58 | disposition home or self-care (01) ==
LOC: PH3 16:54
PROVIDERS: ADMIT Internal Medicine; ATTEND Internal Medicine